=== PATIENT | female | born 1985 | race Caucasian/White ===

== ENCOUNTER 2020-04-22 10:03 | Emergency (ER) | payer BC, OTHER ==
[2020-04-22] MEDS ORDERED: GI Cocktail Oral Solution 30 ML PO ONE (10:38)
[2020-04-22 11:05] LABS: PTT,PARTIAL THROMBOPLSTIN TIME 24.1 SEC (24.5-32.8)
[2020-04-22] MEDS ORDERED: Ketorolac 30 MG/ML SDV IVPUSH ONE (11:07)
[2020-04-22] MEDS ORDERED: Ondansetron 4 MG/2 ML SDV IVPUSH ONE (11:07)
[2020-04-22] MEDS ORDERED: Sodium Chloride 0.9% 10 ML Syringe FLUSH PRN (11:07)
[2020-04-22] MEDS ORDERED: Tamsulosin 0.4 MG Cap.ER PO ONE (11:16)
[2020-04-22 11:17] LABS: CHLORIDE,CL 103 mmol/L (98-107); SODIUM,NA 137 mmol/L (136-145)
[2020-04-22] MEDS ORDERED: Sodium Chloride 0.9% 1,000 ML IV ONE ×2 (11:17→13:26)
[2020-04-22] MEDS ORDERED: Morphine 2 MG/ML SYRINGE IVPUSH ONE (11:52)
--- NOTE | 2020-04-22 13:25 | EDM.PDOC ---
ED HPI GENERAL MEDICAL PROBLEM - General Chief Complaint: Flank Pain Stated Complaint: flank pain Time Seen by Provider: 04/22/20 10:30 Source of Information: Reports: Patient History Limitations: Reports: No Limitations - History of Present Illness INITIAL COMMENTS - FREE TEXT/NARRATIVE: Patient comes to ER with complaint of left flank pain that started this morning. Sometimes nausea with pain. Dysuria present. No hematuria. No burning with urination. No fevers/chills. Nothing specific makes pain better/worse. No history of kidney stones. Has history of intermittent tachycardia in past that has been acting up the past few days. Patient uses Valsalva maneuver to help get rid of it. Gets dizzy with episodes. No other changes reported. Has weekly Covid testing. No results from testing 2 days ago. - Related Data Allergies Allergy/AdvReac Type Severity Reaction Status Date / Time No Known Allergies Allergy Verified 04/22/20 10:04 Home Meds: Home Meds Ketorolac [Toradol] 10 mg PO Q6H PRN #10 tab 04/22/20 [Rx] Ondansetron [Zofran ODT] 4 mg PO Q6H PRN #5 tab.dis 04/22/20 [Rx] Tamsulosin [Tamsulosin 24 Hr] 0.4 mg PO ASDIRECTED #2 cap.er 04/22/20 [Rx] Past Medical History - Past Health History Medical/Surgical History: Denies Medical/Surgical History Social & Family History - Tobacco Use Smoking Status *Q: Never Smoker Second Hand Smoke Exposure: No - Caffeine Use Caffeine Use: Reports: Coffee, Soda, Tea - Recreational Drug Use Recreational Drug Use: No ED ROS GENERAL - Review of Systems Review Of Systems: See Below Constitutional: Reports: Decreased Appetite HEENT: Reports: No Symptoms Respiratory: Reports: No Symptoms Cardiovascular: Reports: Lightheadedness, Palpitations GI/Abdominal: Reports: Abdominal Pain, Nausea. Denies: Constipation, Diarrhea, Hematemesis, Hematochezia, Vomiting : Reports: Dysuria, Flank Pain. Denies: Discharge, Frequency, Hematuria, Incontinence, Pain, Urgency Musculoskeletal: Reports: No Symptoms Skin: Reports: No Symptoms Neurological: Reports: No Symptoms Psychiatric: Reports: No Symptoms ED EXAM, GENERAL - Physical Exam Exam: See Below Exam Limited By: No Limitations General Appearance: Alert, WD/WN, No Apparent Distress Eye Exam: Bilateral Eye: EOMI, PERRL Ears: Hearing Grossly Normal Nose: No: Nasal Deformity, Nasal Swelling, Nasal Drainage Throat/Mouth: Normal Lips, Normal Voice, No Airway Compromise Head: Atraumatic, Normocephalic Neck: Supple, Full Range of Motion Respiratory/Chest: No Respiratory Distress, Lungs Clear, Normal Breath Sounds, No Accessory Muscle Use, Chest Non-Tender Cardiovascular: No Murmur, Tachycardia GI/Abdominal: Normal Bowel Sounds, Soft, Other (mild tenderness palpation left mid abdomen). No: Guarding, Rigid, Rebound (Female) Exam: Deferred Rectal (Female) Exam: Deferred Back Exam: CVA Tenderness (L) (minimal). No: Muscle Spasm Extremities: Normal Inspection, Normal Capillary Refill Neurological: Alert, Oriented, Normal Cognition, Normal Gait, No Motor/Sensory Deficits Psychiatric: Normal Affect, Normal Mood Skin Exam: Warm, Dry, Intact, Normal Color EKG INTERPRETATION EKG Date: 04/22/20 Time: 12:11 Rhythm: NSR Rate (Beats/Min): 71 Carmen: Normal P-Wave: Present QRS: Normal ST-T: Normal QT: Normal Course - Vital Signs Last Recorded V/S: Last Vital Signs Temp 35.7 C L 04/22/20 10:09 Pulse 105 H 04/22/20 10:09 Resp 16 04/22/20 10:09 BP 145/73 H 04/22/20 10:09 Pulse Ox 99 04/22/20 10:09 - Orders/Labs/Meds Orders: Active Orders 24 hr Category Date Time Status EKG Documentation Completion [RC] ASDIRECTED Care 04/22/20 12:52 Active EKG Documentation Completion [RC] STAT Care 04/22/20 10:26 Active Abdomen Pelvis wo Cont [CT] Stat Exams 04/22/20 11:08 Taken Chest 1V Frontal [CR] Stat Exams 04/22/20 10:27 Taken Sodium Chloride 0.9% [Saline Flush] Med 04/22/20 11:07 Active 10 ml FLUSH ASDIRECTED PRN Saline Lock Insert [OM.PC] Routine Oth 04/22/20 11:07 Ordered Medication Orders Sodium Chloride (Saline Flush) 10 ml FLUSH ASDIRECTED PRN PRN Reason: Keep Vein Open Last Admin: 04/22/20 11:34 Dose: 10 ml Documented by: MALIK Labs: Laboratory Tests 04/22/20 04/22/20 04/22/20 Range/Units 10:44 10:44 10:44 WBC 10.8 H (4.0-10.2) K/uL RBC 4.66 (3.77-5.09) M/uL Hgb 13.5 (11.7-15.5) g/dL Hct 39.7 (34.0-46.0) % MCV 85.2 (84.0-98.0) fL MCH 29.0 (28.2-33.3) pg MCHC 34.0 (31.7-36.0) g/dL RDW 13.7 (11.2-14.1) % Plt Count 272 (150-350) K/uL Neut % (Auto) 73.7 (45.0-80.0) % Lymph % (Auto) 18.0 (10.0-50.0) % [place] % (Auto) 5.7 (2.0-14.0) % Eos % (Auto) 2.0 (0.0-5.0) % Baso % (Auto) 0.6 (0.0-2.0) % Neut # (Auto) 7.99 H (1.40-7.00) K/uL Lymph # (Auto) 1.95 (0.50-3.50) K/uL [place] # (Auto) 0.62 (0.00-1.00) K/uL Eos # (Auto) 0.22 (0.00-0.50) K/uL Baso # (Auto) 0.06 (0.00-0.20) K/uL PT 9.9 (9.5-12.0) SEC INR 1.0 APTT 24.1 L (24.5-32.8) SEC D-Dimer, Quantitative (0-400) ng/mL Sodium 137 (136-145) mmol/L Potassium 3.7 (3.5-5.1) mmol/L Chloride 103 (98-107) mmol/L Carbon Dioxide 24.9 (21.0-32.0) mmol/L BUN 13 (7-18) mg/dL Creatinine 0.74 (0.51-1.17) mg/dL Est Cr Clr Drug Dosing TNP Estimated GFR (MDRD) > 60 mL/min Glucose 104 (74-106) mg/dL Lactic Acid (0.4-2.0) mmol/L Calcium 9.2 (8.5-10.1) mg/dL Magnesium 1.7 L (1.8-2.4) mg/dL Total Bilirubin 2.0 H (0.2-1.0) mg/dL AST 29 (15-37) U/L ALT 39 (12-78) U/L Alkaline Phosphatase 83 (46-116) IU/L Creatine Kinase 56 (26-308) U/L Creatine Kinase Index 0.7 (0.0-2.5) % CK-MB (CK-2) 0.40 (0.00-3.60) ng/mL Troponin I 0.000 (0.000-0.056) ng/mL NT-Pro-B Natriuret Pep 29 (0-125) pg/mL Total Protein 8.0 (6.4-8.2) g/dL Albumin 4.1 (3.4-5.0) g/dL Specimen Type Urine Color Urine Appearance Urine pH (5.0-9.0) Ur Specific [place] (1.005-1.030) Urine Protein (NEGATIVE) mg/dL Urine Glucose (UA) (NEGATIVE) mg/dL Urine Ketones (NEGATIVE) mg/dL Urine Occult Blood (NEGATIVE) Urine Nitrite (NEGATIVE) Urine Bilirubin (NEGATIVE) Urine Urobilinogen (0.2-1.0) E.U./dL Ur Leukocyte Esterase (NEGATIVE) Urine RBC /HPF Urine WBC /HPF Ur Epithelial Cells /LPF Urine Bacteria (NONE TO FEW) /HPF 04/22/20 04/22/20 04/22/20 Range/Units 10:44 10:44 13:10 WBC (4.0-10.2) K/uL RBC (3.77-5.09) M/uL Hgb (11.7-15.5) g/dL Hct (34.0-46.0) % MCV (84.0-98.0) fL MCH (28.2-33.3) pg MCHC (31.7-36.0) g/dL RDW (11.2-14.1) % Plt Count (150-350) K/uL Neut % (Auto) (45.0-80.0) % Lymph % (Auto) (10.0-50.0) % [place] % (Auto) (2.0-14.0) % Eos % (Auto) (0.0-5.0) % Baso % (Auto) (0.0-2.0) % Neut # (Auto) (1.40-7.00) K/uL Lymph # (Auto) (0.50-3.50) K/uL [place] # (Auto) (0.00-1.00) K/uL Eos # (Auto) (0.00-0.50) K/uL Baso # (Auto) (0.00-0.20) K/uL PT (9.5-12.0) SEC INR APTT (24.5-32.8) SEC D-Dimer, Quantitative 487 H (0-400) ng/mL Sodium (136-145) mmol/L Potassium (3.5-5.1) mmol/L Chloride (98-107) mmol/L Carbon Dioxide (21.0-32.0) mmol/L BUN (7-18) mg/dL Creatinine (0.51-1.17) mg/dL Est Cr Clr Drug Dosing Estimated GFR (MDRD) mL/min Glucose (74-106) mg/dL Lactic Acid 1.3 (0.4-2.0) mmol/L Calcium (8.5-10.1) mg/dL Magnesium (1.8-2.4) mg/dL Total Bilirubin (0.2-1.0) mg/dL AST (15-37) U/L ALT (12-78) U/L Alkaline Phosphatase (46-116) IU/L Creatine Kinase (26-308) U/L Creatine Kinase Index (0.0-2.5) % CK-MB (CK-2) (0.00-3.60) ng/mL Troponin I (0.000-0.056) ng/mL NT-Pro-B Natriuret Pep (0-125) pg/mL Total Protein (6.4-8.2) g/dL Albumin (3.4-5.0) g/dL Specimen Type Urinvoid Urine Color Britney Urine Appearance Slightly cloudy Urine pH 5.5 (5.0-9.0) Ur Specific [place] >= 1.030 (1.005-1.030) Urine Protein Negative (NEGATIVE) mg/dL Urine Glucose (UA) Negative (NEGATIVE) mg/dL Urine Ketones Negative (NEGATIVE) mg/dL Urine Occult Blood Large H (NEGATIVE) Urine Nitrite Negative (NEGATIVE) Urine Bilirubin Negative (NEGATIVE) Urine Urobilinogen 0.2 (0.2-1.0) E.U./dL Ur Leukocyte Esterase Negative (NEGATIVE) Urine RBC 30-40 H /HPF Urine WBC 0-5 /HPF Ur Epithelial Cells Few /LPF Urine Bacteria Few (NONE TO FEW) /HPF Meds: Medications Generic Name Dose Route Start Last Admin Trade Name Freq PRN Reason Stop Dose Admin Sodium Chloride 10 ml 04/22/20 11:07 04/22/20 11:34 Saline Flush FLUSH 10 ml ASDIRECTED PRN Administration Keep Vein Open Discontinued Medications Generic Name Dose Route Start Last Admin Trade Name Freq PRN Reason Stop Dose Admin Al Hydroxide/Mg Hydroxide 30 ml 04/22/20 10:38 04/22/20 11:04 Gi Cocktail PO 04/22/20 10:39 30 ml ONETIME ONE Administration Sodium Chloride 1,000 mls @ 999 mls/hr 04/22/20 11:17 04/22/20 11:35 Normal Saline IV 04/22/20 12:17 999 mls/hr .BOLUS ONE Administration Magnesium Sulfate/Dextrose 1 100 mls @ 100 mls/hr 04/22/20 11:59 04/22/20 12:38 gm/ Premix IV 04/22/20 12:58 100 mls/hr ONETIME ONE Administration Sodium Chloride 1,000 mls @ 999 mls/hr 04/22/20 13:26 04/22/20 13:46 Normal Saline IV 04/22/20 14:26 999 mls/hr .BOLUS ONE Administration Ketorolac Tromethamine 30 mg 04/22/20 11:07 04/22/20 11:34 Toradol IVPUSH 04/22/20 11:08 30 mg ONETIME ONE Administration Morphine Sulfate 2 mg 04/22/20 11:52 Morphine IVPUSH 04/22/20 11:53 ONETIME ONE Ondansetron HCl 4 mg 04/22/20 11:07 04/22/20 11:34 Zofran IVPUSH 10/02/20 11:08 4 mg ONETIME ONE Administration Tamsulosin HCl 0.4 mg 04/22/20 11:16 04/22/20 11:35 Flomax PO 04/22/20 11:17 0.4 mg ONETIME ONE Administration - Radiology Interpretation CT Results Date: 04/22/20 CT Results Time: 12:00 (1mm obstructing stone left UVJ) - Re-Assessments/Exams Free Text/Narrative Re-Assessment/Exam: Labs requested. Included troponin/EKG given tachycardia complaints. IV fluids/Flomax/Toradol due to suspected possible kidney stone. 04/22/20 14:47 Small kidney stone identified as noted above. IV magnesium added to fluids as patient already low and dilutional effect from NS would cause further drop. Total of 2 liters infused. Patient's pain much better since Toradol. She would like to be discharged home. Will Rx PO Toradol and an additional dose of Flomax for her to use PRN. To strain urine. Follow up as needed in ER. Follow up with PCP/bring stone in for analysis if she is able to save it. Departure - Departure Time of Disposition: 14:50 Disposition: Home, Self-Care 01 Condition: Good Clinical Impression: Kidney stone on left side, Hypomagnesemia, Palpitations - Discharge Information *PRESCRIPTION DRUG MONITORING PROGRAM REVIEWED*: Not Applicable Prescriptions: Tamsulosin [Tamsulosin 24 Hr] 0.4 mg PO ASDIRECTED #2 cap.er Ketorolac [Toradol] 10 mg PO Q6H PRN #10 tab PRN Reason: Pain Ondansetron [Zofran ODT] 4 mg PO Q6H PRN #5 tab.dis PRN Reason: Nausea Instructions: Hypomagnesemia, Kidney Stones, [id number] Forms: ED Department Discharge Additional Instructions: Continue Flomax one tab every 12 hours until stone passes. Stone is 1mm and should be able to pass reasonably quickly. Stay hydrated. Use Toradol one tab PO every 6 hours as needed for pain. Do not take Toradol with Ibuprofen or Aleve products. Use Zofran every 6 hours as needed for nausea. Follow up as needed if you have worsening problems or cannot pass kidney stone within the next 24-48 hours. Strain urine to catch stone. Bring it to your primary care provider and they can send it in for analysis to figure out what kind of stone you made. Start a regular Magnesium supplement daily. Take 500mg daily. Mag Glycinate or Mag Taurate are good. Mag Oxide is most easily found version. Anticipate that this is most likely a life-long supplement. Get your Mag level checked once or twice a year to see if you need dose changes. This may help with your heart palpitations as discussed. Follow up with your primary provider regarding a Holter monitor to better assess the palpitations. Have them check your thyroid panel too as that can contribute to irregular heart beat. Sepsis Event Note (ED) - Evaluation Sepsis Screening Result: No Definite Risk - Focused Exam Vital Signs: Vital Signs Temp Pulse Resp BP Pulse Ox 04/22/20 10:09 35.7 C L 105 H 16 145/73 H 99 - My Orders Last 24 Hours: My Active Orders 04/22/20 10:26 EKG Documentation Completion [RC] STAT 04/22/20 10:27 Chest 1V Frontal [CR] Stat 04/22/20 11:07 Sodium Chloride 0.9% [Saline Flush] 10 ml FLUSH ASDIRECTED PRN Saline Lock Insert [OM.PC] Routine 04/22/20 11:08 Abdomen Pelvis wo Cont [CT] Stat 04/22/20 12:52 EKG Documentation Completion [RC] ASDIRECTED - Assessment/Plan Last 24 Hours: My Active Orders 04/22/20 10:26 EKG Documentation Completion [RC] STAT 04/22/20 10:27 Chest 1V Frontal [CR] Stat 04/22/20 11:07 Sodium Chloride 0.9% [Saline Flush] 10 ml FLUSH ASDIRECTED PRN Saline Lock Insert [OM.PC] Routine 04/22/20 11:08 Abdomen Pelvis wo Cont [CT] Stat 04/22/20 12:52 EKG Documentation Completion [RC] ASDIRECTED
== END 2020-04-22 15:31 | disposition home or self-care (01) ==
LOC: LL.ED 10:03
DX: N20.2 Calculus of kidney with calculus of ureter (principal); E83.42 Hypomagnesemia; R00.2 Palpitations; R00.0 Tachycardia, unspecified
CPT/HCPCS: 36415; 71045; 74176; 80053; 81001; 82550; 82553; 83605; 83735; 83880; 84484; 85025; 85379; 85610; 85730; 93005; 96361; 96365; 96375; 99284; 99284-25; A9270-GY; J1885; J2405; J3475; J7030